=== PATIENT | male | born 1990 | race Hispanic/Latino ===

== ENCOUNTER 2021-10-10 20:33 | Emergency (ER) | payer MEDICARE ==
--- NOTE | 2021-10-10 20:59 | Emergency Department Report ---
<GIL ROBB - Last Filed: 10/11/21 13:18> ED Psych HPI - General Chief Complaint: Psych Stated Complaint: SI Time Seen by Provider: 10/10/21 20:54 - Related Data Previous Rx's Medication Instructions Recorded Last Taken Type ARIPiprazole [Abilify] 10 mg PO DAILY 30 Days #30 tab 10/12/21 Unknown Rx Clindamycin [Clindamycin CAP] 300 mg PO TID #21 capsule 10/12/[address] [DepaKOTE DR] 250 mg PO BID 30 Days #60 tablet 10/12/21 Unknown Rx Allergies Allergy/AdvReac Type Severity Reaction Status Date / Time No Known Allergies Allergy Verified 10/10/21 20:38 ED Past Medical Hx - Medications Home Medications: Home Medications Medication Instructions Recorded Confirmed Last Taken Type ARIPiprazole [Abilify] 10 mg PO DAILY 30 Days #30 tab 10/12/21 Unknown Rx Clindamycin [Clindamycin CAP] 300 mg PO TID #21 capsule 10/12/[address] [DepaKOTE DR] 250 mg PO BID 30 Days #60 tablet 10/12/21 Unknown Rx ED Medical Decision Making - Lab Data Result diagrams: 10/10/21 21:32 10/10/21 21:32 ED Disposition Clinical Impression: Suicidal ideation, Dental abscess Disposition: 01 HOME / SELF CARE / HOMELESS Condition: Stable Instructions: Persistent Depressive Disorder, Adult, Suicidal Feelings: How to Help Yourself, Dental Abscess Additional Instructions: Follow-up as directed by behavioral health. Drink plenty water. See a dentist. Have a soft diet. Return for problems. Take all the antibiotics. Prescriptions: ARIPiprazole [Abilify] 10 mg PO DAILY 30 Days #30 tab Clindamycin [Clindamycin CAP] 300 mg PO TID #[address] [DepaKOTE DR] 250 mg PO BID 30 Days #60 tablet Referrals: PRIMARY MD THUAN [Primary Care Provider] - 3-5 Days MARSHA EMERY MD [Staff Physician] - 3-5 Days <TREY ROBB - Last Filed: 10/14/21 06:32> ED Psych HPI - General Source: patient, EMS Mode of arrival: Ambulatory - History of Present Illness Initial Comments: Chief complaint: "I did not like my living arrangements." HPI: This is a 30-year-old male with history of depression, bipolar disorder, anxiety, ADHD, hypertension, diabetes mellitus polysubstance abuse BMI 48 who has recently been discharged from [facility]. He lives in [facility]. He has recently been placed at a local skilled nursing to 3 days ago. Today he ran in front of traffic. He states he is "suicidal". He has been compliant with meds. Patient reports requests medication adjustment and social media project manager. Documentation from skilled nursing states that he is not doing well at skilled nursing he denies any physical complaint. He politely asked for food and drink. MD Complaint: suicidal ideation, other (Attempt to run in front of traffic) -: days(s) (2 days of symptom) Associated Psychiatric Symptoms: depression, suicidal ideation History of same: Yes Quality: constant Improves With: none Worsens With: none Context: other (Recently placed in skilled nursing from [facility] 2 days ago) Associated Symptoms: denies other symptoms Treatments Prior to Arrival: none If Self Harm: admits thoughts of ED Review of Systems ROS: Stated complaint: SI Other details as noted in HPI Comment: All other systems reviewed and negative Constitutional: denies: chills, fever, malaise Respiratory: denies: cough, shortness of breath Cardiovascular: denies: chest pain Gastrointestinal: denies: vomiting Psychiatric: depression, suicidal thoughts ED Past Medical Hx - Past Medical History Previous Medical History?: Yes Hx Diabetes: Yes Hx Psychiatric Treatment: Yes Additional medical history: DEPRESSION, HYPERTENSION, ADHD, HTN - Surgical History Past Surgical History?: Yes Additional Surgical History: LAP BAND - Social History Substance Use Type: Cocaine, Methamphetamines ED Physical Exam - General Limitations: No Limitations General appearance: alert, in no apparent distress, other (Polite cooperative directable ) - Head Head exam: Present: atraumatic, normocephalic - Eye Eye exam: Present: normal appearance - ENT ENT exam: Present: mucous membranes moist - Neck Neck exam: Present: normal inspection, full ROM - Respiratory Respiratory exam: Present: normal lung sounds bilaterally. Absent: respiratory distress, wheezes, rales, stridor - Cardiovascular Cardiovascular Exam: Present: regular rate, normal rhythm, normal heart sounds. Absent: systolic murmur, diastolic murmur, rubs, gallop - GI/Abdominal GI/Abdominal exam: Present: soft, normal bowel sounds. Absent: distended, tenderness, guarding, rebound - Rectal Rectal exam: Present: deferred - Extremities Exam Extremities exam: Present: normal inspection - Back Exam Back exam: Present: normal inspection - Neurological Exam Neurological exam: Present: alert, oriented X3 - Psychiatric Psychiatric exam: Present: depressed, flat affect - Skin Skin exam: Present: warm, dry, intact, normal color. Absent: rash ED Course Vital Signs 10/10/21 10/10/21 10/11/21 20:35 20:38 05:22 Temperature 98.9 F 98.9 F Pulse Rate 88 Respiratory 99 H 20 Rate Blood Pressure 140/86 [Right] O2 Sat by Pulse 99 Oximetry 10/11/21 10/11/21 10/12/21 09:33 20:21 11:14 Temperature 98.5 F 98.4 F Pulse Rate 89 106 H 89 Respiratory 18 18 18 Rate Blood Pressure 139/78 138/87 140/82 [Right] O2 Sat by Pulse 98 99 Oximetry ED Medical Decision Making - Lab Data Result diagrams: 10/10/21 21:32 10/10/21 21:32 - Medical Decision Making This is a 30-year-old male with history of depression bipolar anxiety ADHD polysubstance abuse hypertension diabetes mellitus who attempted to run out in traffic. He has been compliant with medications. Recently placed this week at [facility] from [facility]. Patient is medically clear for acute care. Medications were addressed diabetes and hypertension ordered. Critical care attestation.: If time is entered above; I have spent that time in minutes in the direct care of this critically ill patient, excluding procedure time. ED Disposition Is pt being admited?: No Does the pt Need Aspirin: No
[2021-10-10] MEDS ORDERED: ALUM-MAG HYDROXIDE-SIMETHICONE 200-200-20MG/5ML ORAL LIQD 30 ML PO PRN (21:11)
[2021-10-10] MEDS ORDERED: ACETAMINOPHEN 325 MG TAB PO PRN (21:11)
[2021-10-10] MEDS ORDERED: MAGNESIUM HYDROXIDE (MOM) ORAL LIQD UDC PO PRN (21:11)
[2021-10-10 22:04] LABS: Basophils % (Auto) 0.7 % (0.0-1.8); Eosinophils # (Auto) 0.1 K/mm3 (0.0-0.4); Eosinophils % (Auto) 2.8 % (0.0-4.3); Hematocrit 39.3 % (35.5-45.6); Hemoglobin 12.5 gm/dl (11.8-15.2); Lymphocytes # (Auto) 2.1 K/mm3 (1.2-5.4); Lymphocytes % (Auto) 39.9 % (13.4-35.0); Mean Corpuscular HGB Conc 32 % (32-34); Mean Corpuscular Volume 80 fl (84-94); Monocytes # (Auto) 0.5 K/mm3 (0.0-0.8); Monocytes % (Auto) 9.7 % (0.0-7.3); Platelet Count 336 K/mm3 (140-440); Red Cell Distribution Width 16.7 % (13.2-15.2)
[2021-10-10 22:11] LABS: Blood Urea Nitrogen 12 mg/dL (9-20); Hemolysis Index 6
[2021-10-10 22:15] LABS: BUN/Creatinine Ratio 20
[2021-10-10 22:34] LABS: Bilirubin,Urine NEG (Negative); Blood,Urine NEG (Negative); Color,Urine Yellow (Yellow); Hyaline Casts,Urine 3 /LPF; Mucus,Urine 1+ /HPF; Protein,Urine <15 mg/dL mg/dL (Negative); Urobilinogen,Urine < 2.0 mg/dL (<2.0)
[2021-10-10 22:39] LABS: Amphetamine Screen,Urine PRESUMPTIVE NEGATIVE; Benzodiazepines Screen,Urine PRESUMPTIVE NEGATIVE; Cannabinoid Screen,Urine PRESUMPTIVE NEGATIVE; Cocaine Screen,Urine PRESUMPTIVE NEGATIVE; Methadone Screen,Urine PRESUMPTIVE NEGATIVE; Opiate Screen,Urine PRESUMPTIVE NEGATIVE
[2021-10-11] MEDS ORDERED: IBUPROFEN 800 MG TAB ONE (08:25)
[2021-10-11] MEDS ORDERED: IBUPROFEN 800 MG TAB PO ONE (08:31)
[2021-10-11] MEDS ORDERED: amLODIPine 5 MG TAB PO SCH (10:00)
--- NOTE | 2021-10-11 11:34 | Consultation ---
History of Present Illness - Reason for Consult Consult date: 10/11/21 Reason for consult: suicidal ideation - History of Present Psychiatric Illness ED Note: This is a 30-year-old male with history of depression, bipolar disorder, anxiety, ADHD, hypertension, diabetes mellitus polysubstance abuse BMI 48 who has recently been discharged from [facility]. He lives in [facility]. He has recently been placed at a local [facility] to 3 days ago. Today he ran in front of traffic. He states he is "suicidal". He has been compliant with meds. 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 Documentation from [facility] states that he is not doing well at [facility] he denies any physical complaint. He politely asked for food and drink. Onofre Chaudhry is a 30 year old male with history of bipolar, ADHD, and anxiety disorder who presents to the ED with suicidal ideation. In my interview with the patient, he reports that he has been having suicidal thoughts for the past 2 days. He denies having a plan and denies having hallucinations. PAST PSYCHIATRIC HISTORY Diagnoses: Bipolar, ADHD, Anxiety Suicide attempts or Self-harm behavior: Yes Prior psychiatric hospitalizations: Yes Substance Abuse history: Crack, Meth Previous psychiatric medications tried:unable to recall Outpatient treatment:Yes SOCIAL HISTORY Marital Status: Single Living Arrangements: Homeless Employment Status: unemployed Access to guns/weapons: Denied Education: 6th grade History of Abuse: Denied Legal History: None reported REVIEW OF SYSTEMS Constitutional: Negative for weight loss ENT: Negative for stridor Respiratory: Negative for cough or hemoptysis All other systems reviewed and are negative MENTAL STATUS EXAMINATION General Appearance and Behavior: Age appropriate, dressed appropriately, calm and uncooperative Cooperation: cooperative Psychomotor Behavior: psychomotor normal Mood: Depressed Affect and affective range: congruent with stated mood Thought Process: Circumstantial Thought Content: Suicidal Speech: Normal volume, Regular rate and rhythm, Intellectual Functioning: Average Suicidal Ideation: Yes Homicidal Ideation: Denies Hallucinations:Denies Delusions: None elicited Impulse Control: Unimpaired Insight and Judgment: limited insight and poor judgment, Memory: Normal Attention: divided Orientation: Alert, oriented Assessment and Plan (1) Bipolar disorder (2) Treatment plan 1013 Abilify 10mg po daily Depakote DR. 250mg po BID Risks, benefits and alternatives of medications discussed with the patient, questions answered and consent obtained from patient. PSYCHOTHERAPY: Supportive psychotherapy provided MEDICAL: Per primary team DELIRIUM PRECAUTIONS: Please re-orient patient frequently, keep lights on during the day, and minimize benzodiazepines and opiates as these medications could worsen patient's confusion. SUPERVISOR NET MAKING: Per medical team DISPOSITION: Recommend acute inpatient psychiatric hospitalization. Will follow. Thank you for the consult. Please contact with any questions and/or concerns. Case staffed with Dr. Sullivan Medications and Allergies Medications and Allergies Allergies Allergy/AdvReac Type Severity Reaction Status Date / Time No Known Allergies Allergy Verified 10/10/21 20:38 Active Meds: Active Medications Acetaminophen (Acetaminophen 325 Mg Tab) 650 mg PO Q4HR PRN PRN Reason: Pain MILD(1-3)/Fever >100.5/YAN Al Hydrox/Mg Hydrox/Simethicone (Alum-Mag Hydroxide-Simethicone [id number]/5ml Oral Liqd 30 Ml) 30 ml PO Q4HR PRN PRN Reason: Indigestion Amlodipine Besylate (Amlodipine 5 Mg Tab) 5 mg PO DAILY GERARD Magnesium Hydroxide (Magnesium Hydroxide (Mom) Oral Liqd Udc) 30 ml PO Q12HR PRN PRN Reason: Constipation Metformin HCl (Metformin 500 Mg Tab) 1,000 mg PO [facility]ID[facility]AB [facility] Mental Status Exam - Vital signs Last Vital Signs Temp 98.9 F 10/10/21 20:38 Pulse 89 10/11/21 09:33 Resp 18 10/11/21 09:33 BP 139/78 10/11/21 09:33 Pulse Ox 99 10/11/21 05:22 Results Result Diagrams: 10/10/21 21:32 10/10/21 21:32 Abnormal lab results 10/10/21 10/10/21 10/10/21 Range/Units 21:32 21:32 21:32 MCV 80 L (84-94) fl MCH 26 L (28-32) pg RDW 16.7 H (13.2-15.2) % Lymph % (Auto) 39.9 H (13.4-35.0) % [place] % (Auto) 9.7 H (0.0-7.3) % Carbon Dioxide 21 L (22-30) mmol/L Creatinine 0.6 L (0.8-1.3) mg/dL Salicylates < 0.3 L (2.8-20.0) mg/dL Acetaminophen (10.0-30.0) ug/mL 10/10/21 Range/Units 21:32 MCV (84-94) fl MCH (28-32) pg RDW (13.2-15.2) % Lymph % (Auto) (13.4-35.0) % [place] % (Auto) (0.0-7.3) % Carbon Dioxide (22-30) mmol/L Creatinine (0.8-1.3) mg/dL Salicylates (2.8-20.0) mg/dL Acetaminophen 5.0 L (10.0-30.0) ug/mL All other labs normal.
[2021-10-11] MEDS ORDERED: ARIPiprazole 10 MG TAB PO SCH (12:00)
--- NOTE | 2021-10-11 13:18 | Event Note ---
Date: 10/11/21 Patient is continue to endorse suicidal thoughts. Patient to remain at 1013 at this time and is still waiting for placement. Patient this morning is complaining of some right-sided tooth pain that he has had for several weeks. Patient with tenderness to palpation of the right upper second molar. Is likely the patient does have a abscess in this area. No facial cellulitis. Patient started on clindamycin. Given ibuprofen for pain. Psychiatric Consult Note Patient Name: ONOFRE CEDEOÑ Date of : 86 Patient Status: Emergency Emergency Provider: CEZARTREY Date: 10/11/21 11:29 Initialization Date: 10/11/21 11:29 History of Present Illness - Reason for Consult Consult date: 10/11/21 Reason for consult: suicidal ideation - History of Present Psychiatric Illness ED Note: This is a 30-year-old male with history of depression, bipolar disorder, anxiety, ADHD, hypertension, diabetes mellitus polysubstance abuse BMI 48 who has recently been discharged from [facility]. He lives in [facility]. He has recently been placed at a local [facility] to 3 days ago. Today he ran in front of traffic. He states he is "suicidal". He has been compliant with meds. Patient reports requests medication adjustment and social work associate. Documentation from [facility] states that [facility] not [facility] at [facility] he denies any physical complaint. He politely asked for food and drink. Onofre Cedeño is a 30 year old male with history of bipolar, ADHD, and anxiety disorder who presents to the ED with suicidal ideation. In my interview with the patient, he reports that he has been having suicidal thoughts for the past 2 days. He denies having a plan and denies having hallucinations. PAST PSYCHIATRIC HISTORY Diagnoses: Bipolar, ADHD, Anxiety Suicide attempts or Self-harm behavior: Yes Prior psychiatric hospitalizations: Yes Substance Abuse history: Crack, Meth Previous psychiatric medications tried:unable to recall Outpatient treatment:Yes SOCIAL HISTORY Marital Status: Single Living Arrangements: Homeless Employment Status: unemployed Access to guns/weapons: Denied Education: 6th grade History of Abuse: Denied Legal History: None reported REVIEW OF SYSTEMS Constitutional: Negative for weight loss ENT: Negative for stridor Respiratory: Negative for cough or hemoptysis All other systems reviewed and are negative MENTAL STATUS EXAMINATION General Appearance and Behavior: Age appropriate, dressed appropriately, calm and uncooperative Cooperation: cooperative Psychomotor Behavior: psychomotor normal Mood: Depressed Affect and affective range: congruent with stated mood Thought Process: Circumstantial Thought Content: Suicidal Speech: Normal volume, Regular rate and rhythm, Intellectual Functioning: Average Suicidal Ideation: Yes Homicidal Ideation: Denies Hallucinations:Denies Delusions: None elicited Impulse Control: Unimpaired Insight and Judgment: limited insight and poor judgment, Memory: Normal Attention: divided Orientation: Alert, oriented Assessment and Plan (1) Bipolar disorder (2) Treatment plan 1013 Abilify 10mg po daily Depakote 250mg po BID Risks, benefits and alternatives of medications discussed with the patient, questions answered and consent obtained from patient. PSYCHOTHERAPY: Supportive psychotherapy provided MEDICAL: Per primary team DELIRIUM PRECAUTIONS: Please re-orient patient frequently, keep lights on during the day, and minimize benzodiazepines and opiates as these medications could worsen patient's confusion. PIER RUNNER: Per medical team DISPOSITION: Recommend acute inpatient psychiatric hospitalization. Will follow. Thank you for the consult. Please contact with any questions and/or concerns. Case staffed with Dr. Sullivan
[2021-10-11] MEDS: DIVALPROEX DR 250 MG TAB PO SCH ×2 (16:52→21:56)
[2021-10-11] MEDS: IBUPROFEN 600 MG TAB PO SCH ×2 (16:52→21:56)
[2021-10-11] MEDS: metFORMIN 500 MG TAB PO SCH (16:54)
[2021-10-11] MEDS: CLINDAMYCIN 300 MG CAP PO SCH ×2 (16:54→21:56)
[2021-10-12] MEDS: metFORMIN 500 MG TAB PO SCH (09:15)
[2021-10-12] MEDS: CLINDAMYCIN 300 MG CAP PO SCH (09:16)
--- NOTE | 2021-10-12 09:42 | Progress Note ---
Subjective - Reason for Consult Consult date: 10/12/21 Reason for consult: mental health evaluation - Chief Complaint Chief complaint: The patient is seen this morning, he reports doing well. The patient denies any current suicidal ideation and denies hallucinations. REVIEW OF SYSTEMS Constitutional: Negative for weight loss ENT: Negative for stridor Respiratory: Negative for cough or hemoptysis All other systems reviewed and are negative MENTAL STATUS EXAMINATION General Appearance and Behavior: Age appropriate, dressed appropriately, calm and uncooperative Cooperation: cooperative Psychomotor Behavior: psychomotor normal Mood: "ok Affect and affective range: congruent with stated mood Thought Process: organized Thought Content:reality oriented Speech: Normal volume, Regular rate and rhythm, Intellectual Functioning: Average Suicidal Ideation: Denies Homicidal Ideation: Denies Hallucinations:Denies Delusions: None elicited Impulse Control: Unimpaired Insight and Judgment: limited insight and goodjudgment, Memory: Normal Attention: divided Orientation: Alert, oriented Assessment and Plan (1) Bipolar disorder (2) Treatment plan Discontinue 1013 Abilify 10mg po daily Depakote DR. 250mg po BID Risks, benefits and alternatives of medications discussed with the patient, questions answered and consent obtained from patient. PSYCHOTHERAPY: Supportive psychotherapy provided MEDICAL: Per primary team DELIRIUM PRECAUTIONS: Please re-orient patient frequently, keep lights on during the day, and minimize benzodiazepines and opiates as these medications could worsen patient's confusion. CLOTH PIECER: Per medical team DISPOSITION:Do not recommend acute inpatient psychiatric hospitalization. Will sign off. Thank you for the consult. Please contact with any questions and/or concerns. Case staffed with Dr. Sullivan Medications and Allergies Mental Status Exam - Vital signs Last Vital Signs Temp 98.5 F 10/11/21 20:21 Pulse 106 H 10/11/21 20:21 Resp 18 10/11/21 20:21 BP 138/87 10/11/21 20:21 Pulse Ox 98 10/11/21 20:21
[2021-10-12] MEDS: DIVALPROEX DR 250 MG TAB PO SCH (09:57)
[2021-10-12] MEDS: IBUPROFEN 600 MG TAB PO SCH (09:57)
--- NOTE | 2021-10-12 10:23 | Emergency Department Report ---
Blank Doc - Documentation Documentation: Patient is resting comfortably. He is not suicidal today. Psych is seen the patient and they have recommended discharge. I believe this would be appropriate. There is no medical indication for admission.
[2021-10-12 11:15] VITALS: BP 140/82
== END 2021-10-12 11:15 | disposition home or self-care (01) ==
LOC: ED 20:33
DX: R45.851 Suicidal ideations (principal); K04.7 Periapical abscess without sinus; Z79.899 Other long term (current) drug therapy; Z20.822 Contact with and (suspected) exposure to COVID-19
CPT/HCPCS: 36415; 80048; 80307; 81001; 82962; 85025; 99284; U0003; 80320; G0480

== ENCOUNTER 2021-10-12 16:33 | Emergency (ER) | payer MEDICARE ==
[2021-10-12 16:39] VITALS: BP 146/80
--- NOTE | 2021-10-12 17:18 | Emergency Department Report ---
HPI - General Chief Complaint: Psych Time Seen by Provider: 10/12/21 16:57 - HPI HPI: [facility] 5 Patient is a 30-year-old male present with chief complaint of dyspnea on exertion and suicidal ideation. The patient was discharged from this hospital earlier today after initially being evaluated for suicidal ideation. Patient tested positive for Covid while in the ED. This morning the patient no longer endorsed suicidal ideation and was cleared by psych and subsequently discharged. The patient states after he was discharged he developed dyspnea on exertion in addition to again having suicidal ideation and he was prompted by his mother to return to the emergency department. Patient denies any attempts at harming himself since the suicidal ideation returned but states his plan was to walk in front of traffic. ED Past Medical Hx - Past Medical History Hx Diabetes: Yes Hx Psychiatric Treatment: Yes (Bipolar disorder) Additional medical history: DEPRESSION, HYPERTENSION, ADHD, HTN - Surgical History Additional Surgical History: LAP BAND - Family History Family history: no significant - Social History Smoking Status: Current Some Day Smoker Substance Use Type: None (Denies illicit drug use), Alcohol (Occasional), Methamphetamines - Medications Home Medications: Home Medications Medication Instructions Recorded Confirmed Last Taken Type ARIPiprazole [Abilify] 10 mg PO DAILY 30 Days #30 tab 10/12/21 Unknown Rx Clindamycin [Clindamycin CAP] 300 mg PO TID #21 capsule 10/12/[address] [DepaKOTE DR] 250 mg PO BID 30 Days #60 tablet 10/12/21 Unknown Rx ED Review of Systems ROS: Stated complaint: SI Other details as noted in HPI Constitutional: no symptoms reported Eyes: denies: eye pain ENT: denies: throat pain Respiratory: SOB with exertion Cardiovascular: dyspnea on exertion Endocrine: no symptoms reported Gastrointestinal: denies: abdominal pain Genitourinary: denies: dysuria Musculoskeletal: denies: back pain Neurological: denies: headache Psychiatric: suicidal thoughts Physical Exam - Physical Exam Vital Signs: Vital Signs 10/12/21 16:37 Temperature 98.6 F Pulse Rate 90 Respiratory 18 Rate Blood Pressure 146/80 [Left] O2 Sat by Pulse 97 Oximetry Physical Exam: GENERAL: The patient is well-developed well-nourished male lying on stretcher not appearing to be in acute distress. [] HEENT: Normocephalic. Atraumatic. Extraocular motions are intact. Patient has moist mucous membranes. NECK: Supple. Trachea midline CHEST/LUNGS: Clear to auscultation. There is no respiratory distress noted. HEART/CARDIOVASCULAR: Regular. There is no tachycardia. There is no gallop rub or murmur. ABDOMEN: Abdomen is soft, nontender. Patient has normal bowel sounds. There is no abdominal distention. SKIN: There is no rash. There is no edema. There is no diaphoresis. NEURO: The patient is awake, alert, and oriented. The patient is cooperative. The patient has no focal neurologic deficits. The patient has normal speech. GCS 15 MUSCULOSKELETAL: There is no evidence of acute injury. ED Course Vital Signs 10/12/21 16:37 Temperature 98.6 F Pulse Rate 90 Respiratory 18 Rate Blood Pressure 146/80 [Left] O2 Sat by Pulse 97 Oximetry ED Medical Decision Making - Lab Data Result diagrams: 10/12/21 17:26 10/12/21 17:26 - Radiology Data Radiology results: report reviewed (Chest x-ray), image reviewed (Chest x-ray) interpreted by me: Chest x-ray-no definite focal infiltrates, no pneumothorax [address] [address] XRay Report Signed Patient: ELY CEDEÑO MR#: [id number] 5 : 1990 Acct:[id number] Age/Sex: 30 / M ADM Date: 10/12/21 Loc: ED Attending Dr: Ordering Physician: TARIQ DAMON MD Date of Service: 10/12/21 Procedure(s): XR chest routine 2V Accession Number(s): [id number] cc: TARIQ DAMON MD Fluoro Time In Minutes: CHEST 2 VIEWS INDICATION / CLINICAL INFORMATION: Dyspnea on exertion; COVID positive. COMPARISON: 03/21/11. FINDINGS: SUPPORT DEVICES: None. HEART / MEDIASTINUM: The heart size and pulmonary vasculature are normal. LUNGS / PLEURA: No significant pulmonary or pleural abnormality. No pneumothorax. ADDITIONAL FINDINGS: No significant additional findings. IMPRESSION: No acute abnormality or significant change. Signer Name: Laurent Llamas MD Signed: 10/12/2021 5:31 PM Workstation Name: [id number] Transcribed By: RT Dictated By: Laurent Llamas MD Electronically Authenticated By: Laurent Llamas MD Signed Date/Time: 10/12/211730 DD/ 29 TD/TT: Print Cancel - Medical Decision Making Patient's 2-minute walking SPO2 did not decrease less than 94% on room air. MH ruching machine operator's note appreciated - Differential Diagnosis COVID-19, suicidal ideation, malingering Critical care attestation.: If time is entered above; I have spent that time in minutes in the direct care of this critically ill patient, excluding procedure time. ED Disposition Clinical Impression: COVID Disposition: 01 HOME / SELF CARE / HOMELESS Is pt being admited?: No Does the pt Need Aspirin: No Condition: Stable Instructions: Prevent the Spread of COVID-19 if You Are Sick - CDC, COVID-19 Frequently Asked Questions, Suicidal Feelings: How to Help Yourself Additional Instructions: Return to the emergency department should you develop worsening symptoms, aspen bility to tolerate food or liquids, high fever or any other concerns Referrals: PRIMARY CAREMD [Primary Care Provider] - 3-5 Days Time of Disposition: 23:23
--- NOTE | 2021-10-12 17:35 | XRay Report ---
CHEST 2 VIEWS INDICATION / CLINICAL INFORMATION: Dyspnea on exertion; COVID positive. COMPARISON: 03/21/11. FINDINGS: SUPPORT DEVICES: None. HEART / MEDIASTINUM: The heart size and pulmonary vasculature are normal. LUNGS / PLEURA: No significant pulmonary or pleural abnormality. No pneumothorax. ADDITIONAL FINDINGS: No significant additional findings. IMPRESSION: No acute abnormality or significant change. Signer Name: Laurent Llamas MD Signed: 10/12/2021 5:31 PM Workstation Name: [id number]
[2021-10-12 17:50] LABS: Basophils % (Auto) 0.5 % (0.0-1.8); Eosinophils % (Auto) 0.8 % (0.0-4.3); Hematocrit 38.3 % (35.5-45.6); Hemoglobin 12.4 gm/dl (11.8-15.2); Lymphocytes # (Auto) 1.5 K/mm3 (1.2-5.4); Lymphocytes % (Auto) 25.3 % (13.4-35.0); Mean Corpuscular HGB Conc 32 % (32-34); Mean Corpuscular Volume 79 fl (84-94); Monocytes # (Auto) 0.5 K/mm3 (0.0-0.8); Monocytes % (Auto) 8.1 % (0.0-7.3); Platelet Count 331 K/mm3 (140-440); Red Blood Count 4.84 M/mm3 (3.65-5.03); Red Cell Distribution Width 16.4 % (13.2-15.2)
[2021-10-12 17:56] LABS: Blood Urea Nitrogen 16 mg/dL (9-20); Calcium 9.2 mg/dL (8.4-10.2); Hemolysis Index 2
[2021-10-12 17:58] LABS: BUN/Creatinine Ratio 27
== END 2021-10-12 23:20 | disposition home or self-care (01) ==
LOC: ED 16:33
DX: U07.1 COVID-19 (principal); E11.8 Type 2 diabetes mellitus with unspecified complications; F31.9 Bipolar disorder, unspecified; F17.200 Nicotine dependence, unspecified, uncomplicated
CPT/HCPCS: 36415; 71046; 80048; 80164; 80320; 83880; 85025; 99284; G0480